=== PATIENT | male | born 1970 | race Caucasian/White ===

== ENCOUNTER → 2021-02-20 09:48 | Outpatient (BNVA) | payer OTHER, SELFPAY | PROVIDERS: Visit Provider Nurse Practitioner Family | DX: R68.89 Other general symptoms and signs (principal); J06.9 Acute upper respiratory infection, unspecified; R21 Rash and other nonspecific skin eruption; Z20.822 Contact with and (suspected) exposure to COVID-19 | CPT/HCPCS: 87635 ==